=== PATIENT | male | born 1950 | race Caucasian/White ===

== ENCOUNTER → 2017-03-03 | Outpatient (CLI) | payer MEDICARE, BC ==
[~2017-03-03] MED LIST: ASCORBIC ACID500 M2 PO; BISACODYL EC5 M1 DOB; COUMADIN6 MG PO; DYAZIDE 37.5/251 CAP PO; FLORASTOR250 M1 PO; FLUOXETINE HCL20 M1 PO; GABAPENTIN300 M2 PO; HYDROCHLOROTHIA25 MG PO; HYDROCODON-ACE1 EAC7 PO; IPRATR-ALBUTEROL3 ML INH; LISINOPRIL PO; LISINOPRIL5 MG PO; LOPRESSOR PO; MEDROL4 MG/DOSE- PO; METOPROLOL SUCC50 MG PO; MILK OF MAGNESIA PO; MUCINEX DM ER1 EACH PO; MULTI VITAMIN1 EACH PO; NAPROXEN PO; PROTONIX PO; SENOKOT S1 TA1 PO; SIMVASTATIN80 MG PO; TOPROL XL PO; TRAZODONE HCL150 MG PO; TUDORZA PRESS400 MCG IH; ZINC SULFATE220 M1 PO; ZOCOR PO; ZOCOR80 MG PO; ZOFRAN8 MG PO
--- NOTE | ~2017-03-03 | CT16 ---
[facility] A Service of [facility] RADIOLOGY TEXT RESULTS PATIENT: KIN RICE [facility] UN[facility] #: [id number] AGE: [address]: Guevara Castro MD SEX: M ORDER DR: [id number] [facility]. [place], [place] [address] [id number] O MR#: [id number] Acc #: [id number] NAME: KIN RICE. : 1950 SEX: M STUDY DATE/TIME: 03/03/2017 8:31 UNIT: [facility] ROOM: STUDY DESCRIPTION: CT Angio Chest for PE Attending Physician: Guevara Castro M.D. Referring Physician: Guevara Castro M.D. Ordering Physician: Guevara Castro M.D. Primary Care Physician: Eric Romero M.D. MEDICAL IMAGING REPORT This report is preliminary unless electronic signature is present EXAM CT angiography of the chest with IV contrast COMPARISON March 20, 2016 INDICATION 66-year-old male with pulmonary embolus in February 2016. The patient currently complains of cough. Followup after pulmonary embolus was requested. History of hypertension. TECHNIQUE This CT exam was performed with one or more of the following radiation dose reduction techniques: automatic exposure control, adjustment of mA and/or kV according to patient size, and iterative reconstruction. FINDINGS The exam is slightly suboptimal for evaluation of pulmonary embolus. In particular, evaluation of the bilateral lower lobe pulmonary arterial branches is limited due to phase of postcontrast imaging. The large pulmonary embolus previously seen in the distal main pulmonary arteries and extending into both upper lobes, both lower lobes and the right middle lobe is no longer definitely seen. There are multivessel coronary artery calcifications. There is normal heart size. Normal caliber of the thoracic aorta and pulmonary artery. No acute fractures or suspicious osseous lesions. There are a few prominent right hilar lymph nodes, largest of which measures up to 8.0 mm short axis, likely reactive. There is grossly stable apparent diffuse mild thickening of the distal esophagus, perhaps coaptation due to collapse. Visualized airways are widely patent. There is no evidence of pneumothorax, pleural effusion or pneumonia. There is mild centrilobular emphysema. Advanced osteoarthritis of the glenohumeral joints. There appear to be chronic joint bodies at both glenohumeral joints. [facility] A Service of [facility] RADIOLOGY TEXT RESULTS PATIENT: KIN RICE LOCATION: [facility] : 46 UNIT #: [id number] AGE: [address]: Guevara Castro MD SEX: M ORDER DR: Incompletely imaged simple cyst in the left kidney measuring up to 4.9 cm. The splenic artery has its own origin from the abdominal aorta. Main branches of the abdominal aorta imaged on this exam are widely patent. There is a questionable faint linear defect within the lumen of the abdominal aorta near the takeoff of the superior mesenteric artery which may be artifactual. This is also a finding which can be seen in a fenestrated dissection. This finding is not well evaluated currently. There is no evidence of arterial flow-limiting dissection in the upper abdomen. There are calcified pulmonary granulomas. There is a 3.0 mm noncalcified right middle lobe nodule which is stable from March 20, 2016. IMPRESSION 1. Exam is mildly limited for pulmonary embolus in both lower lobes, but the vessels do opacify with contrast. There is no evidence of pulmonary embolus on this exam and I can confidently say that the bulky central pulmonary emboli have resolved from comparison of March 20, 2016. 2. Stable 4.0 mm nodule in the right middle lobe which is noncalcified. Patient does have calcified pulmonary granulomas and this could represent a noncalcified pulmonary granuloma. Consider CT chest follow-up in 1 year without IV contrast to document overall 2-year stability. 3. Coronary artery calcifications. 4. Mild nonspecific thickening of the distal esophagus which appears circumferential and not appreciably changed from a year ago. Clinical correlation recommended. If indicated, direct visualization could be performed. Again this finding appears stable from a year ago. 5. Advanced osteoarthritis of both glenohumeral joints with chronic-appearing joint bodies, incompletely imaged. 6. Incompletely imaged simple fluid-containing structure in the left kidney measuring up to 4.9 cm most in keeping with a benign cyst. 7. Favored to represent artifact, there is a faint curvilinear area of hypoattenuation in the abdominal aorta at the level of the takeoff of the superior mesenteric artery. This could represent admixture artifact. A completely fenestrated dissection could have similar appearance but this is thought less likely. There is no evidence of a flow-limiting dissection. Imaging followup with CT angiography could be performed but only as clinically indicated. 8. Coronary artery calcifications. Dictated by... Mik Walker M.D. THIS IS AN ELECTRONICALLY VERIFIED REPORT Mik Walker M.D. at 03/05/2017 11:12 AM CARLY/marino [facility] A Service of [facility] RADIOLOGY TEXT RESULTS PATIENT: KIN RICE LOCATION: [facility] : 46 UNIT #: [id number] AGE: [address]: Guevara Castro MD SEX: M ORDER DR: TD: 03/03/2017 11:05 JOB #: [id number] MEDICAL IMAGING REPORT Page 1 of 1 COPY
[2017-03-03 10:20] LABS: POC - CREATININE 1.34 mg/dL (0.64-1.27)
== END | disposition home or self-care (01) ==
LOC: CCAT 07:43
PROVIDERS: Internal Medicine Hematology
DX: I26.99 Other pulmonary embolism without acute cor pulmonale (principal); I25.10 Atherosclerotic heart disease of native coronary artery without angina pectoris; J84.10 Pulmonary fibrosis, unspecified; M19.012 Primary osteoarthritis, left shoulder; M19.011 Primary osteoarthritis, right shoulder
CPT/HCPCS: 71275; 82565; Q9967